=== PATIENT | female | born 1985 | race Caucasian/White ===

== ENCOUNTER 2020-05-23 15:41 | Inpatient (IN) | payer BC, OTHER ==
[~2020-05-23] VITALS: Ht 172.7 cm; Wt 56.2 kg
[2020-05-23] MEDS: LACTATED RINGER'S 1,000 ML INJ SCH
[2020-05-23 16:53] LABS: BASOPHILS % 0.1 % (0.0-1.0); EOSINOPHILS # (AUTO) 0.1 (0.0-0.4); EOSINOPHILS % 1.5 % (0.0-6.0); HEMATOCRIT 34.7 % (34.2-44.1); LYMPHOCYTES # (AUTO) 0.5 (1.0-3.2); LYMPHOCYTES % 5.7 % (18.0-39.1); MEAN CORPUSCULAR HEMOGLOBIN 31.2 pg (28-32); MEAN CORPUSCULAR HGB CONC 34.6 g/dL (31-35); MEAN CORPUSCULAR VOLUME 90.1 fL (81-99); MONOCYTES # (AUTO) 0.2 (0.2-0.8); MONOCYTES % 2.5 % (4.4-11.3); NEUTROPHILS # (AUTO) 7.1 (2.1-6.9); NEUTROPHILS % 89.8 % (38.7-80.0); PLATELET COUNT 226 x10e3/uL (140-360); RED BLOOD COUNT 3.85 x10e6/uL (3.6-5.1); RED CELL DISTRIBUTION WIDTH 13.3 % (11.7-14.4)
[2020-05-23 17:10] LABS: ALBUMIN 3.3 g/dL (3.5-5.0); ALBUMIN/GLOBULIN RATIO 1.2 (0.8-2.0); ANION GAP 22.5 mmol/L (8-16); CREATININE, SERUM 7.07 mg/dL (0.57-1.11); LIPASE 30 U/L (8-78); POTASSIUM 5.5 mmol/L (3.5-5.1)
[2020-05-23 17:13] LABS: CALCIUM 6.6 mg/dL (8.4-10.2)
[2020-05-23] MEDS ORDERED: SODIUM CHLORIDE 0.9% 1000ML 1,000 ML ONE (17:29)
[2020-05-23] MEDS ORDERED: SODIUM CHLORIDE 0.9% 1000ML 1,000 ML IV SCH ×2 (17:30→19:15)
[2020-05-23] MEDS ORDERED: CALCIUM GLUCONATE 10% INJ 4.65 MEQ in SODIUM CHLORIDE 0.9% 50ML 50 ML IV ONE (17:30)
[2020-05-23] MEDS ORDERED: SODIUM CHLORIDE 0.9% IV SCH (19:15)
[2020-05-23] MEDS ORDERED: DEXTROSE 10% IV SCH (19:15)
[2020-05-23 19:23] LABS: MAGNESIUM 1.5 MG/DL (1.3-2.1); PHOSPHORUS 7.6 MG/DL (2.3-4.7)
[2020-05-23 19:27] LABS: CLARITY,URINE TURBID (CLEAR); COLOR,URINE BROWN (YELLOW); LEUKOCYTE ESTERASE ,URINE LARGE (NEGATIVE); NITRITE,URINE NEGATIVE (NEGATIVE); PROTEIN,URINE DIPSTICK 2+ (NEGATIVE)
[2020-05-23 19:28] LABS: KETONES,URINE NEGATIVE (NEGATIVE); URINE UROBILINOGEN 0.2 mg/dL (0.2 - 1)
[2020-05-23 19:41] LABS: WBC,URINE (MAN) >50 /HPF (0-5)
[2020-05-23 19:42] LABS: BACTERIA,URINE MODERATE /HPF
[2020-05-23] MEDS ORDERED: [UNRECOGNIZED DRUG - OTHER] IV SCH (20:15)
[2020-05-23] MEDS ORDERED: SODIUM CHLORIDE IV SCH (20:15)
[2020-05-23] MEDS ORDERED: DEXTROSE 50% IV SCH (20:15)
[2020-05-23] MEDS ORDERED: ONDANSETRON HCL INJ 2MG/ML 2ML 2 MG/ML VIAL IV PRN (20:15)
[2020-05-23 21:28] LABS: INR 4.53
[2020-05-23 21:31] LABS: PROTHROMBIN TIME 47.1 seconds (11.9-14.5)
[2020-05-23 21:37] VITALS: BP 105/56
[2020-05-23 22:00] VITALS: BP_SYST 105; BP_SYST 106; BP_DIAS 56; BP_DIAS 63
[2020-05-23 22:09] VITALS: BP 103/63
[2020-05-23] MEDS: SODIUM CHLORIDE 0.9% 1000ML 1,000 ML IV SCH (22:12)
[2020-05-23 23:00] VITALS: BP 107/54
[2020-05-23 23:40] LABS: AMPHETAMINES SCREEN,URINE NEGATIVE (NEGATIVE); BENZODIAZEPINES SCREEN,URINE NEGATIVE (NEGATIVE); PHENCYCLIDINE SCREEN,URINE NEGATIVE (NEGATIVE)
[2020-05-24] VITALS (20 sets, daily range): BP systolic 105–140; BP diastolic 63–92
[2020-05-24] MEDS ORDERED: PHYTONADIONE 10 MG/ML AMP IV ONE (00:30)
[2020-05-24] MEDS ORDERED: SODIUM CHLORIDE 0.9% 100 ML ONE (00:53)
[2020-05-24] MEDS ORDERED: RIFAXIMIN 550 MG TABLET ONE ×2 (02:25→03:54)
[2020-05-24] MEDS ORDERED: LACTULOSE SYRUP 20 GM/30 ML UDC ONE (02:25)
[2020-05-24] MEDS: SODIUM CHLORIDE 0.9% 1000ML 1,000 ML IV SCH (02:55)
[2020-05-24] MEDS ORDERED: ACETYLCYSTEINE 200 MG/1 ML IV ONE (03:49)
[2020-05-24] MEDS ORDERED: SODIUM CHLORIDE 0.9% 250ML 250 ML ONE (03:57)
[2020-05-24] MEDS ORDERED: SODIUM CHLORIDE 0.45% 1,000 ML ONE (03:57)
[2020-05-24] MEDS: LACTATED RINGER'S 1,000 ML INJ SCH ×3 (05:00→19:22)
[2020-05-24 06:46] LABS: BASOPHILS % 0.2 % (0.0-1.0); EOSINOPHILS # (AUTO) 0.3 (0.0-0.4); EOSINOPHILS % 5.2 % (0.0-6.0); HEMOGLOBIN 11.7 g/dL (12.0-16.0); LYMPHOCYTES # (AUTO) 0.5 (1.0-3.2); LYMPHOCYTES % 9.4 % (18.0-39.1); MEAN CORPUSCULAR HEMOGLOBIN 31.3 pg (28-32); MEAN CORPUSCULAR HGB CONC 34.4 g/dL (31-35); MEAN CORPUSCULAR VOLUME 90.9 fL (81-99); MONOCYTES # (AUTO) 0.2 (0.2-0.8); NEUTROPHILS # (AUTO) 4.1 (2.1-6.9); NEUTROPHILS % 81.8 % (38.7-80.0); PLATELET COUNT 188 x10e3/uL (140-360); RED BLOOD COUNT 3.74 x10e6/uL (3.6-5.1); RED CELL DISTRIBUTION WIDTH 13.2 % (11.7-14.4)
[2020-05-24 07:47] LABS: ALBUMIN 2.7 g/dL (3.5-5.0); ALBUMIN/GLOBULIN RATIO 1.1 (0.8-2.0); ANION GAP 20.6 mmol/L (8-16); CREATININE, SERUM 5.86 mg/dL (0.57-1.11); POTASSIUM 4.6 mmol/L (3.5-5.1)
[2020-05-24 07:52] LABS: CALCIUM 6.1 mg/dL (8.4-10.2)
[2020-05-24 08:58] LABS: MAGNESIUM 1.5 MG/DL (1.3-2.1); PHOSPHORUS 5.6 MG/DL (2.3-4.7)
[2020-05-24 09:00] LABS: CALCIUM IONIZED 0.8 mmol/L (1.09-1.30)
[2020-05-24] MEDS: PROMETHAZINE 25MG/ NS 50ML (IV) IV PRN ×2 (09:01→23:00)
[2020-05-24] MEDS: RIFAXIMIN 550 MG TABLET PO SCH ×2 (09:23→21:33)
[2020-05-24] MEDS: LACTULOSE SYRUP 20 GM/30 ML UDC PO PRN ×2 (09:23→17:29)
[2020-05-24] MEDS ORDERED: CALCIUM GLUCONATE 10% INJ 4.65 MEQ in SODIUM CHLORIDE 0.9% 50ML 50 ML IV ONE (10:10)
[2020-05-24] MEDS ORDERED: ALBUMIN 25% 25GM 100ML 0.25 GM/ML BTL IV SCH (10:15)
[2020-05-24] MEDS ORDERED: ACETYLCYSTEINE IV ONE (12:00)
[2020-05-24] MEDS ORDERED: SODIUM CHLORIDE 0.45% IV ONE (12:00)
[2020-05-24] MEDS: MIDODRINE HCL 5 MG TABLET PO SCH ×2 (12:04→17:29)
[2020-05-24] MEDS: OCTREOTIDE ACETATE 0.1 MG/ML 100MCG AMP SQ SCH ×2 (12:04→17:29)
[2020-05-24] MEDS: CEFEPIME HCL 1GM 1 GM in SODIUM CHLORIDE 0.9% 50ML 50 ML IV SCH (12:19)
[2020-05-24] MEDS: ALBUMIN 25% 25GM 100ML 100 ML IV SCH ×2 (12:21→17:29)
[2020-05-24] MEDS ORDERED: PHYTONADIONE 10MG/ML 20 MG in SODIUM CHLORIDE 0.9% 50ML 50 ML IV ONE (13:00)
[2020-05-25] VITALS (23 sets, daily range): BP systolic 118–146; BP diastolic 83–97
[2020-05-25] MEDS: LACTATED RINGER'S 1,000 ML INJ SCH ×4 (02:24→15:50)
[2020-05-25] MEDS ORDERED: SODIUM CHLORIDE 0.45% IV ONE (04:30)
[2020-05-25] MEDS ORDERED: ACETYLCYSTEINE IV ONE (04:30)
[2020-05-25 05:04] LABS: INR 3.14
[2020-05-25 05:13] LABS: ALBUMIN 2.9 g/dL (3.5-5.0); ALBUMIN/GLOBULIN RATIO 1.4 (0.8-2.0); ANION GAP 15.4 mmol/L (8-16); CALCIUM 7.4 mg/dL (8.4-10.2); CREATININE, SERUM 4.29 mg/dL (0.57-1.11); POTASSIUM 3.4 mmol/L (3.5-5.1)
[2020-05-25] MEDS: MIDODRINE HCL 5 MG TABLET PO SCH ×2 (09:00→17:00)
[2020-05-25] MEDS: ALBUMIN 25% 25GM 100ML 100 ML IV SCH ×2 (09:10→18:01)
[2020-05-25] MEDS: RIFAXIMIN 550 MG TABLET PO SCH ×2 (09:11→21:04)
[2020-05-25] MEDS: OCTREOTIDE ACETATE 0.1 MG/ML 100MCG AMP SQ SCH ×2 (09:16→17:59)
[2020-05-25] MEDS: CEFEPIME HCL 1GM 1 GM in SODIUM CHLORIDE 0.9% 50ML 50 ML IV SCH (09:22)
[2020-05-25] MEDS: PROMETHAZINE 25MG/ NS 50ML (IV) IV PRN (09:43)
[2020-05-25 10:09] LABS: CREATININE,URINE RANDOM 83.51 mg/dL (47-110)
[2020-05-25] MEDS ORDERED: CLONAZEPAM1 MG PO (14:19)
[2020-05-25] MEDS ORDERED: TYLENOL EXTRA500 MG PO (14:19)
[2020-05-25] MEDS ORDERED: TRAZODONE HCL50 MG PO (14:19)
[2020-05-25] MEDS: LACTULOSE SYRUP 20 GM/30 ML UDC PO PRN (14:26)
[2020-05-25] MEDS ORDERED: SODIUM CHLORIDE 0.45% 1,000 ML IV SCH (16:45)
[2020-05-25] MEDS ORDERED: POTASSIUM CHLORIDE 10MEQ EA PO ONE (17:00)
[2020-05-25] MEDS: CLONAZEPAM 0.5 MG TAB PO SCH (18:02)
[2020-05-25] MEDS: HYDROMORPHONE 1MG/1ML INJ IV ONE ×2 (18:03→19:48)
[2020-05-25 19:09] LABS: OSMOLALITY,SERUM OSMOMETER 291 mOsmol/kg (275-295)
[2020-05-25] MEDS: ACETYLCYSTEINE IV SCH (21:04)
[2020-05-25] MEDS: SODIUM CHLORIDE 0.45% IV SCH (21:04)
[2020-05-25] MEDS ORDERED: PHYTONADIONE 10 MG/ML AMP IV ONE (23:15)
[2020-05-25] MEDS ORDERED: LACTULOSE SYRUP 20 GM/30 ML UDC PO STA (23:22)
[2020-05-25] MEDS ORDERED: PHYTONADIONE 10MG/ML 20 MG in SODIUM CHLORIDE 0.9% 50ML 50 ML IV ONE (23:30)
[2020-05-26 04:00] VITALS: BP 129/88
[2020-05-26] MEDS: LACTATED RINGER'S 1,000 ML INJ SCH ×4 (04:58→22:15)
[2020-05-26] MEDS: CLONAZEPAM 0.5 MG TAB PO SCH ×2 (05:04→17:53)
[2020-05-26 06:08] LABS: BASOPHILS # (AUTO) 0.1 (0.0-0.1); BASOPHILS % 0.7 % (0.0-1.0); EOSINOPHILS # (AUTO) 0.6 (0.0-0.4); EOSINOPHILS % 9.1 % (0.0-6.0); HEMATOCRIT 33.2 % (34.2-44.1); HEMOGLOBIN 11.2 g/dL (12.0-16.0); LYMPHOCYTES # (AUTO) 1.3 (1.0-3.2); LYMPHOCYTES % 19.2 % (18.0-39.1); MEAN CORPUSCULAR HEMOGLOBIN 31.5 pg (28-32); MEAN CORPUSCULAR HGB CONC 33.7 g/dL (31-35); MEAN CORPUSCULAR VOLUME 93.3 fL (81-99); MONOCYTES # (AUTO) 0.6 (0.2-0.8); NEUTROPHILS # (AUTO) 4.3 (2.1-6.9); NEUTROPHILS % 62.6 % (38.7-80.0); PLATELET COUNT 142 x10e3/uL (140-360); RED BLOOD COUNT 3.56 x10e6/uL (3.6-5.1); RED CELL DISTRIBUTION WIDTH 13.5 % (11.7-14.4)
[2020-05-26 06:10] LABS: ALBUMIN 3.2 g/dL (3.5-5.0); ALBUMIN/GLOBULIN RATIO 1.4 (0.8-2.0); ANION GAP 12.6 mmol/L (8-16); CALCIUM 7.6 mg/dL (8.4-10.2); CREATININE, SERUM 2.31 mg/dL (0.57-1.11); POTASSIUM 3.6 mmol/L (3.5-5.1)
[2020-05-26 07:33] LABS: INR 2.41; PROTHROMBIN TIME 28.2 seconds (11.9-14.5)
[2020-05-26 07:33] LABS: % IRON SATURATION 96 % (15-50); IRON 131 ug/dL (50-170); TOTAL IRON BINDING CAPACITY 136 ug/dL (261-478); TRANSFERRIN 97 mg/dL (180-382)
[2020-05-26] MEDS ORDERED: CEFEPIME HCL 1 GM VIAL ONE (08:03)
[2020-05-26] MEDS ORDERED: SODIUM CHLORIDE 0.9% 50ML 50 ML ONE (08:03)
[2020-05-26 08:19] VITALS: BP 128/93
[2020-05-26 08:38] VITALS: BP 128/93
[2020-05-26] MEDS: ALBUMIN 25% 25GM 100ML 100 ML IV SCH ×2 (08:40→17:52)
[2020-05-26] MEDS: LACTULOSE SYRUP 20 GM/30 ML UDC PO SCH ×2 (08:41→17:52)
[2020-05-26] MEDS: MIDODRINE HCL 5 MG TABLET PO SCH ×2 (08:41→17:52)
[2020-05-26] MEDS: RIFAXIMIN 550 MG TABLET PO SCH ×2 (08:41→21:04)
[2020-05-26] MEDS: OCTREOTIDE ACETATE 0.1 MG/ML 100MCG AMP SQ SCH ×2 (09:05→17:52)
[2020-05-26] MEDS: CEFEPIME HCL 1GM 1 GM in SODIUM CHLORIDE 0.9% 50ML 50 ML IV SCH (10:45)
[2020-05-26 11:32] VITALS: BP 125/93
[2020-05-26] MEDS: ACETYLCYSTEINE IV SCH ×2 (12:15→19:50)
[2020-05-26] MEDS: SODIUM CHLORIDE 0.45% IV SCH ×2 (12:15→19:50)
[2020-05-26 15:45] VITALS: BP 130/94
[2020-05-26 20:00] VITALS: BP 144/97
[2020-05-26] MEDS ORDERED: MORPHINE SULFATE INJ 2 MG/ML SYR IV ONE (21:30)
[2020-05-27] VITALS (8 sets, daily range): BP systolic 134–154; BP diastolic 88–98
[2020-05-27] MEDS: ZOLPIDEM TARTRATE 5 MG TAB PO PRN ×2 (01:10→23:06)
[2020-05-27] MEDS: MORPHINE SULFATE INJ 4 MG/ML INJ 1ML IV PRN ×3 (04:45→16:32)
[2020-05-27] MEDS: LACTATED RINGER'S 1,000 ML INJ SCH (04:50)
[2020-05-27 05:48] LABS: BASOPHILS % 0.4 % (0.0-1.0); EOSINOPHILS % 10.5 % (0.0-6.0); HEMATOCRIT 27.4 % (34.2-44.1); HEMOGLOBIN 9.5 g/dL (12.0-16.0); LYMPHOCYTES # (AUTO) 1.4 (1.0-3.2); LYMPHOCYTES % 15.4 % (18.0-39.1); MEAN CORPUSCULAR HEMOGLOBIN 32.2 pg (28-32); MEAN CORPUSCULAR HGB CONC 34.7 g/dL (31-35); MEAN CORPUSCULAR VOLUME 92.9 fL (81-99); MONOCYTES # (AUTO) 0.7 (0.2-0.8); MONOCYTES % 7.9 % (4.4-11.3); NEUTROPHILS # (AUTO) 5.9 (2.1-6.9); NEUTROPHILS % 65.1 % (38.7-80.0); PLATELET COUNT 153 x10e3/uL (140-360); RED BLOOD COUNT 2.95 x10e6/uL (3.6-5.1); RED CELL DISTRIBUTION WIDTH 13.8 % (11.7-14.4)
[2020-05-27 06:06] LABS: INR 2.13; PROTHROMBIN TIME 25.5 seconds (11.9-14.5)
[2020-05-27 06:14] LABS: ALBUMIN/GLOBULIN RATIO 1.6 (0.8-2.0); ANION GAP 12.6 mmol/L (8-16); CALCIUM 7.5 mg/dL (8.4-10.2); CREATININE, SERUM 1.35 mg/dL (0.57-1.11); POTASSIUM 3.6 mmol/L (3.5-5.1)
[2020-05-27] MEDS: CLONAZEPAM 0.5 MG TAB PO SCH ×2 (06:26→16:32)
[2020-05-27 08:38] LABS: EOSINOPHILS % (MANUAL) 8 % (0-7); LYMPHOCYTES % (MANUAL) 10 % (19-48); MONOCYTES % (MANUAL) 9 % (3.4-9.0); NEUTROPHILS % (MANUAL) 73 % (40-74)
[2020-05-27] MEDS: MIDODRINE HCL 5 MG TABLET PO SCH ×2 (09:00→15:41)
[2020-05-27] MEDS ORDERED: CEFEPIME HCL 1 GM VIAL ONE (09:13)
[2020-05-27] MEDS: OCTREOTIDE ACETATE 0.1 MG/ML 100MCG AMP SQ SCH ×2 (09:22→16:32)
[2020-05-27] MEDS: RIFAXIMIN 550 MG TABLET PO SCH ×2 (09:22→20:46)
[2020-05-27] MEDS: CEFEPIME HCL 1GM 1 GM in SODIUM CHLORIDE 0.9% 50ML 50 ML IV SCH (09:22)
[2020-05-27] MEDS: LACTULOSE SYRUP 20 GM/30 ML UDC PO SCH ×2 (09:22→16:32)
[2020-05-27] MEDS ORDERED: CEFTRIAXONE SOD 1 GM/50 ML BAG IV SCH (09:45)
[2020-05-27] MEDS ORDERED: ONDANSETRON HCL 4 MG ORAL DISINTEGRATING TAB PO PRN (10:30)
[2020-05-27] MEDS: SODIUM CHLORIDE 0.45% IV SCH (11:37)
[2020-05-27] MEDS: ACETYLCYSTEINE IV SCH (11:37)
[2020-05-27] MEDS: CEFTRIAXONE SOD 1 GM in SODIUM CHLORIDE 0.9% 50ML 50 ML IV SCH (13:54)
[2020-05-27 19:56] LABS: DURATION, URINE COLLECTION 24 hrs
[2020-05-27 20:20] LABS: TOTAL VOLUME, URINE 5500 ml/24hr (800-2000)
[2020-05-27 20:46] LABS: CREATININE 24 HOUR,URINE 1096 mg/24hr (600-1800); CREATININE,URINE RANDOM 19.93 mg/dL (47-110)
[2020-05-27 20:49] LABS: TOTAL PROTEIN 24HR, URINE 373.99945 mg/24hr (50-100); TOTAL PROTEIN, URINE < 6.8 mg/dL (1-14)
[2020-05-27 20:59] LABS: EOSINOPHIL SMEAR,URINE NONE SEEN (NONE SEEN)
[2020-05-27] MEDS: MORPHINE SULFATE INJ 2 MG/ML SYR IV PRN (23:06)
[2020-05-28] VITALS (7 sets, daily range): BP systolic 130–151; BP diastolic 78–97
[2020-05-28] MEDS ORDERED: PHYTONADIONE 10 MG/ML AMP IV ONE (01:00)
[2020-05-28] MEDS ORDERED: PHYTONADIONE 10MG/ML 20 MG in SODIUM CHLORIDE 0.9% 50ML 50 ML IV ONE (01:15)
[2020-05-28] MEDS: MORPHINE SULFATE INJ 2 MG/ML SYR IV PRN ×2 (05:06→10:56)
[2020-05-28 05:36] LABS: BASOPHILS # (AUTO) 0.1 (0.0-0.1); BASOPHILS % 0.4 % (0.0-1.0); EOSINOPHILS # (AUTO) 0.5 (0.0-0.4); HEMATOCRIT 30.9 % (34.2-44.1); HEMOGLOBIN 10.5 g/dL (12.0-16.0); LYMPHOCYTES # (AUTO) 1.1 (1.0-3.2); LYMPHOCYTES % 6.7 % (18.0-39.1); MEAN CORPUSCULAR HEMOGLOBIN 31.7 pg (28-32); MEAN CORPUSCULAR VOLUME 93.4 fL (81-99); MONOCYTES # (AUTO) 1.6 (0.2-0.8); MONOCYTES % 9.4 % (4.4-11.3); NEUTROPHILS # (AUTO) 13.4 (2.1-6.9); NEUTROPHILS % 79.8 % (38.7-80.0); PLATELET COUNT 143 x10e3/uL (140-360); RED BLOOD COUNT 3.31 x10e6/uL (3.6-5.1)
[2020-05-28] MEDS: CLONAZEPAM 0.5 MG TAB PO SCH ×2 (05:45→18:06)
[2020-05-28 06:05] LABS: ALANINE AMINOTRANSFERASE 744 IU/L (0-55); ALBUMIN 3.1 g/dL (3.5-5.0); ALBUMIN/GLOBULIN RATIO 1.3 (0.8-2.0); ALKALINE PHOSPHATASE 132 IU/L (40-150); ANION GAP 10.5 mmol/L (8-16); BLOOD UREA NITROGEN 19 mg/dL (7-26); BUN/CREATININE RATIO 19 (6-25); CALCIUM 7.7 mg/dL (8.4-10.2); CARBON DIOXIDE 24 mmol/L (22-29); CHLORIDE 101 mmol/L (98-107); CREATININE, SERUM 1.02 mg/dL (0.57-1.11); EST GLOMERULAR FILTRATION RATE > 60 ML/MIN (60-); GLUCOSE 105 mg/dL (74-118); POTASSIUM 3.5 mmol/L (3.5-5.1); SODIUM 132 mmol/L (136-145)
[2020-05-28] MEDS: LACTULOSE SYRUP 20 GM/30 ML UDC PO SCH ×2 (08:51→18:06)
[2020-05-28] MEDS: RIFAXIMIN 550 MG TABLET PO SCH ×2 (08:52→20:50)
[2020-05-28] MEDS: OCTREOTIDE ACETATE 0.1 MG/ML 100MCG AMP SQ SCH (08:52)
[2020-05-28] MEDS: MIDODRINE HCL 5 MG TABLET PO SCH (09:00)
[2020-05-28] MEDS ORDERED: LACTULOSE SYRUP 20 GM/30 ML UDC PO PRN (12:00)
[2020-05-28] MEDS: ACETYLCYSTEINE IV SCH (12:00)
[2020-05-28] MEDS ORDERED: KETOROLAC TROMETHAMINE 30 MG/ML VIAL IV NR ×2 (12:00→13:15)
[2020-05-28] MEDS: SODIUM CHLORIDE 0.45% IV SCH (12:00)
[2020-05-28] MEDS ORDERED: POTASSIUM CHLORIDE 20 MEQ TAB CR PO NR (14:15)
[2020-05-28] MEDS: CEFTRIAXONE SOD 1 GM in SODIUM CHLORIDE 0.9% 50ML 50 ML IV SCH (14:55)
[2020-05-28 15:14] LABS: FERRITIN 441.85 ng/mL (4.63-204.00)
[2020-05-28] MEDS: METHOCARBAMOL 500 MG TAB PO SCH ×2 (15:27→20:50)
[2020-05-28] MEDS: ZOLPIDEM TARTRATE 5 MG TAB PO PRN (20:50)
[2020-05-29] VITALS (8 sets, daily range): BP systolic 129–144; BP diastolic 74–95
[2020-05-29 03:45] LABS: CLARITY,URINE CLEAR (CLEAR); COLOR,URINE AMBER (YELLOW)
[2020-05-29 03:46] LABS: KETONES,URINE NEGATIVE (NEGATIVE); LEUKOCYTE ESTERASE ,URINE NEGATIVE (NEGATIVE); NITRITE,URINE NEGATIVE (NEGATIVE); PROTEIN,URINE DIPSTICK NEGATIVE (NEGATIVE); URINE UROBILINOGEN 1 mg/dL (0.2 - 1)
[2020-05-29 03:47] LABS: BACTERIA,URINE FEW /HPF; EPITHELIAL CELLS,URINE MANY /LPF; RENAL EPITHELIAL CELLS,URINE FEW
[2020-05-29] MEDS: SODIUM CHLORIDE 0.45% IV SCH ×2 (04:00→17:18)
[2020-05-29] MEDS: ACETYLCYSTEINE IV SCH ×2 (04:00→17:18)
[2020-05-29] MEDS: CLONAZEPAM 0.5 MG TAB PO SCH ×2 (05:11→16:18)
[2020-05-29] MEDS: MORPHINE SULFATE INJ 2 MG/ML SYR IV PRN ×2 (06:52→12:54)
[2020-05-29 08:00] LABS: BASOPHILS # (AUTO) 0.1 (0.0-0.1); BASOPHILS % 0.4 % (0.0-1.0); EOSINOPHILS # (AUTO) 0.4 (0.0-0.4); EOSINOPHILS % 3.1 % (0.0-6.0); HEMATOCRIT 29.7 % (34.2-44.1); HEMOGLOBIN 10.3 g/dL (12.0-16.0); LYMPHOCYTES # (AUTO) 1.3 (1.0-3.2); LYMPHOCYTES % 9.8 % (18.0-39.1); MEAN CORPUSCULAR HEMOGLOBIN 32.4 pg (28-32); MEAN CORPUSCULAR HGB CONC 34.7 g/dL (31-35); MEAN CORPUSCULAR VOLUME 93.4 fL (81-99); MONOCYTES # (AUTO) 1.4 (0.2-0.8); MONOCYTES % 10.2 % (4.4-11.3); NEUTROPHILS # (AUTO) 10.1 (2.1-6.9); NEUTROPHILS % 75.9 % (38.7-80.0); PLATELET COUNT 124 x10e3/uL (140-360); RED BLOOD COUNT 3.18 x10e6/uL (3.6-5.1); RED CELL DISTRIBUTION WIDTH 14.9 % (11.7-14.4)
[2020-05-29 08:10] LABS: INR 1.83; PROTHROMBIN TIME 22.6 seconds (11.9-14.5)
[2020-05-29 08:20] LABS: ALANINE AMINOTRANSFERASE 560 IU/L (0-55); ALBUMIN 2.9 g/dL (3.5-5.0); ALBUMIN/GLOBULIN RATIO 1.2 (0.8-2.0); ALKALINE PHOSPHATASE 112 IU/L (40-150); ANION GAP 10.5 mmol/L (8-16); BLOOD UREA NITROGEN 16 mg/dL (7-26); BUN/CREATININE RATIO 16 (6-25); CALCIUM 7.4 mg/dL (8.4-10.2); CARBON DIOXIDE 25 mmol/L (22-29); CHLORIDE 103 mmol/L (98-107); CREATININE, SERUM 0.99 mg/dL (0.57-1.11); EST GLOMERULAR FILTRATION RATE > 60 ML/MIN (60-); GLUCOSE 92 mg/dL (74-118); POTASSIUM 3.5 mmol/L (3.5-5.1); SODIUM 135 mmol/L (136-145)
[2020-05-29] MEDS: LACTULOSE SYRUP 20 GM/30 ML UDC PO SCH ×2 (08:20→16:18)
[2020-05-29] MEDS: METHOCARBAMOL 500 MG TAB PO SCH ×3 (08:20→20:22)
[2020-05-29] MEDS: RIFAXIMIN 550 MG TABLET PO SCH ×2 (08:21→20:22)
[2020-05-29] MEDS: IRON SUCROSE 100 MG in SODIUM CHLORIDE 0.9% 100 ML 100 ML IV SCH (10:19)
[2020-05-29] MEDS: TRAMADOL HCL 50 MG TAB PO PRN ×2 (11:24→22:02)
[2020-05-29] MEDS ORDERED: ETOMIDATE 2 MG/ML 10 ML INJ IV ONE (13:56)
[2020-05-29] MEDS ORDERED: WATER STERILE 10 ML VIAL ONE (13:56)
[2020-05-29] MEDS ORDERED: SUCCINYLCHOLINE CHLORIDE 20 MG/ML 10ML VIAL ONE (13:56)
[2020-05-29] MEDS ORDERED: MIDAZOLAM HCL 2 MG/2 ML VIAL ONE (13:56)
[2020-05-29] MEDS: CEFTRIAXONE SOD 1 GM in SODIUM CHLORIDE 0.9% 50ML 50 ML IV SCH (16:18)
[2020-05-29] MEDS: ZOLPIDEM TARTRATE 5 MG TAB PO PRN (20:22)
[2020-05-29] MEDS ORDERED: KETOROLAC TROMETHAMINE 30 MG/ML VIAL IV STA (22:12)
[2020-05-30] VITALS (15 sets, daily range): BP systolic 82–126; BP diastolic 45–82
[2020-05-30 05:18] LABS: BASOPHILS % 0.4 % (0.0-1.0); EOSINOPHILS # (AUTO) 0.3 (0.0-0.4); EOSINOPHILS % 3.5 % (0.0-6.0); HEMATOCRIT 28.1 % (34.2-44.1); HEMOGLOBIN 9.4 g/dL (12.0-16.0); LYMPHOCYTES # (AUTO) 1.4 (1.0-3.2); LYMPHOCYTES % 14.4 % (18.0-39.1); MEAN CORPUSCULAR HEMOGLOBIN 32.2 pg (28-32); MEAN CORPUSCULAR HGB CONC 33.5 g/dL (31-35); MEAN CORPUSCULAR VOLUME 96.2 fL (81-99); MONOCYTES # (AUTO) 1.2 (0.2-0.8); MONOCYTES % 12.2 % (4.4-11.3); NEUTROPHILS # (AUTO) 6.6 (2.1-6.9); NEUTROPHILS % 68.9 % (38.7-80.0); PLATELET COUNT 88 x10e3/uL (140-360); RED BLOOD COUNT 2.92 x10e6/uL (3.6-5.1); RED CELL DISTRIBUTION WIDTH 15.8 % (11.7-14.4)
[2020-05-30 05:40] LABS: ALANINE AMINOTRANSFERASE 450 IU/L (0-55); ALBUMIN 2.7 g/dL (3.5-5.0); ALKALINE PHOSPHATASE 129 IU/L (40-150); ANION GAP 12.4 mmol/L (8-16); BLOOD UREA NITROGEN 13 mg/dL (7-26); BUN/CREATININE RATIO 15 (6-25); CALCIUM 7.3 mg/dL (8.4-10.2); CARBON DIOXIDE 24 mmol/L (22-29); CHLORIDE 102 mmol/L (98-107); CREATININE, SERUM 0.84 mg/dL (0.57-1.11); EST GLOMERULAR FILTRATION RATE > 60 ML/MIN (60-); GLUCOSE 82 mg/dL (74-118); POTASSIUM 3.4 mmol/L (3.5-5.1); SODIUM 135 mmol/L (136-145)
[2020-05-30] MEDS: CLONAZEPAM 0.5 MG TAB PO SCH (06:06)
[2020-05-30] MEDS: RIFAXIMIN 550 MG TABLET PO SCH ×2 (09:00→23:01)
[2020-05-30] MEDS: METHOCARBAMOL 500 MG TAB PO SCH (09:00)
[2020-05-30] MEDS: IRON SUCROSE 100 MG in SODIUM CHLORIDE 0.9% 100 ML 100 ML IV SCH (09:00)
[2020-05-30] MEDS: LACTULOSE SYRUP 20 GM/30 ML UDC PO SCH ×2 (09:00→17:00)
[2020-05-30] MEDS ORDERED: POTASSIUM CHLORIDE 20 MEQ TAB CR PO ONE (10:30)
[2020-05-30] MEDS: MORPHINE SULFATE INJ 2 MG/ML SYR IV PRN (10:37)
[2020-05-30] MEDS ORDERED: OYST-CAL-D 500MG TABLET PO ONE (10:45)
[2020-05-30] MEDS: ACETYLCYSTEINE IV SCH (11:07)
[2020-05-30] MEDS: SODIUM CHLORIDE 0.45% IV SCH (11:07)
[2020-05-30 11:39] LABS: PLATELET ESTIMATE MODERATELY DECREASED; PLATELET MORPHOLOGY COMMENT NORMAL
[2020-05-30 12:30] LABS: BASOPHILS # (AUTO) 0.1 (0.0-0.1); BASOPHILS % 0.3 % (0.0-1.0); EOSINOPHILS # (AUTO) 0.4 (0.0-0.4); EOSINOPHILS % 2.4 % (0.0-6.0); LYMPHOCYTES # (AUTO) 1.6 (1.0-3.2); LYMPHOCYTES % 9.3 % (18.0-39.1); MEAN CORPUSCULAR HEMOGLOBIN 32.3 pg (28-32); MEAN CORPUSCULAR HGB CONC 33.9 g/dL (31-35); MEAN CORPUSCULAR VOLUME 95.5 fL (81-99); MONOCYTES # (AUTO) 1.7 (0.2-0.8); MONOCYTES % 10.1 % (4.4-11.3); NEUTROPHILS # (AUTO) 13.2 (2.1-6.9); NEUTROPHILS % 76.5 % (38.7-80.0); PLATELET COUNT 204 x10e3/uL (140-360); RED BLOOD COUNT 2.01 x10e6/uL (3.6-5.1); RED CELL DISTRIBUTION WIDTH 16.1 % (11.7-14.4)
[2020-05-30 12:40] LABS: HEMOGLOBIN 6.5 g/dL (12.0-16.0)
[2020-05-30 12:41] LABS: HEMATOCRIT 19.2 % (34.2-44.1)
[2020-05-30 13:47] LABS: MEAN CORPUSCULAR HEMOGLOBIN 31.9 pg (28-32); MEAN CORPUSCULAR VOLUME 96.8 fL (81-99); PLATELET COUNT 273 x10e3/uL (140-360); RED BLOOD COUNT 1.85 x10e6/uL (3.6-5.1); RED CELL DISTRIBUTION WIDTH 16.3 % (11.7-14.4)
[2020-05-30 13:52] LABS: HEMATOCRIT 17.9 % (34.2-44.1); HEMOGLOBIN 5.9 g/dL (12.0-16.0)
[2020-05-30 13:56] LABS: INR 1.92; PROTHROMBIN TIME 23.5 seconds (11.9-14.5)
[2020-05-30] MEDS ORDERED: SODIUM CHLORIDE 0.9% 250ML 250 ML IV ONE ×4 (14:00→23:45)
[2020-05-30] MEDS: CEFTRIAXONE SOD 1 GM in SODIUM CHLORIDE 0.9% 50ML 50 ML IV SCH (14:00)
[2020-05-30] MEDS ORDERED: LACTATED RINGER'S 1,000 ML INJ ONE (15:30)
[2020-05-30] MEDS ORDERED: IOPAMIDOL 370 MG/ML 200 ML INFUS..BTL INJ ONE (15:31)
[2020-05-30] MEDS ORDERED: SODIUM CHLORIDE 0.9% 100 ML ONE (15:31)
[2020-05-30] MEDS ORDERED: LIDOCAINE HCL 2% LOCAL 20 ML VIAL ONE (16:14)
[2020-05-30] MEDS ORDERED: PROPOFOL IV EMULSION 10MG/ML 100 ML ONE (16:22)
[2020-05-30] MEDS ORDERED: ONDANSETRON HCL INJ 2MG/ML 2ML 2 MG/ML VIAL IV PRN (17:15)
[2020-05-30] MEDS ORDERED: POTASSIUM CHLORIDE 20MEQ/100ML 100 ML IV ONE (17:15)
[2020-05-30] MEDS ORDERED: FENTANYL 2000MCG/NS 250 250 ML IV SCH (17:15)
[2020-05-30] MEDS ORDERED: SODIUM CHLORIDE 0.9% 250ML 250 ML ONE (17:25)
[2020-05-30 17:42] LABS: ABG PCO2 37 mmHg (35-45); ABG PH 7.41 (7.35-7.45); ABG PO2 449 mmHg (80-105)
[2020-05-30 17:43] LABS: ABG HCO3 23 mmol/L (22-26); ABG TCO2 24
[2020-05-30] MEDS ORDERED: CALCIUM CHLORIDE 13.6 MEQ in SODIUM CHLORIDE 0.9% 100 ML 100 ML IV ONE (17:45)
[2020-05-30 20:23] LABS: BASOPHILS # (AUTO) 0.1 (0.0-0.1); BASOPHILS % 0.3 % (0.0-1.0); EOSINOPHILS % 0.1 % (0.0-6.0); HEMOGLOBIN 7.6 g/dL (12.0-16.0); LYMPHOCYTES # (AUTO) 2.7 (1.0-3.2); LYMPHOCYTES % 11.8 % (18.0-39.1); MEAN CORPUSCULAR HEMOGLOBIN 30.4 pg (28-32); MEAN CORPUSCULAR HGB CONC 33.5 g/dL (31-35); MEAN CORPUSCULAR VOLUME 90.8 fL (81-99); MONOCYTES % 8.8 % (4.4-11.3); NEUTROPHILS # (AUTO) 17.1 (2.1-6.9); NEUTROPHILS % 76.3 % (38.7-80.0); PLATELET COUNT 173 x10e3/uL (140-360)
[2020-05-30 20:25] LABS: HEMATOCRIT 22.7 % (34.2-44.1)
[2020-05-30 20:57] LABS: INR 1.95; PROTHROMBIN TIME 23.8 seconds (11.9-14.5)
[2020-05-30] MEDS: TRAMADOL HCL 50 MG TAB PO PRN (23:01)
[2020-05-30] MEDS ORDERED: NOREPINEPHRINE INJ 4MG/4ML 8 MG in DEXTROSE 5% 250ML 250 ML IV PRN (23:30)
[2020-05-31] VITALS (8 sets, daily range): BP systolic 80–111; BP diastolic 40–77
[2020-05-31] MEDS ORDERED: NOREPINEPHRINE 8 MG/D5W 250 ML 250 ML ONE ×2 (00:02→10:17)
[2020-05-31] MEDS ORDERED: SODIUM CHLORIDE 0.9% 1000ML 1,000 ML IV ONE (00:30)
[2020-05-31] MEDS ORDERED: SODIUM CHLORIDE 0.9% 1000ML 1,000 ML ONE (00:39)
[2020-05-31] MEDS ORDERED: PHYTONADIONE 10 MG/ML AMP IV ONE ×2 (00:45→08:45)
[2020-05-31] MEDS ORDERED: SODIUM CHLORIDE 0.9% 100 ML ONE (01:29)
[2020-05-31 03:15] LABS: INR 1.74; PARTIAL THROMBOPLASTIN TIME 39.7 seconds (23.8-35.5); PROTHROMBIN TIME 21.6 seconds (11.9-14.5)
[2020-05-31] MEDS: TRAMADOL HCL 50 MG TAB PO PRN (03:30)
[2020-05-31] MEDS: ACETYLCYSTEINE IV SCH (04:00)
[2020-05-31] MEDS: SODIUM CHLORIDE 0.45% IV SCH (04:00)
[2020-05-31 04:09] LABS: EOSINOPHILS % 0.2 % (0.0-6.0); LYMPHOCYTES # (AUTO) 4.4 (1.0-3.2); LYMPHOCYTES % 19.3 % (18.0-39.1); MEAN CORPUSCULAR HEMOGLOBIN 31.9 pg (28-32); MONOCYTES # (AUTO) 1.8 (0.2-0.8); NEUTROPHILS # (AUTO) 15.4 (2.1-6.9); NEUTROPHILS % 67.4 % (38.7-80.0); RED BLOOD COUNT 0.91 x10e6/uL (3.6-5.1); RED CELL DISTRIBUTION WIDTH 16.8 % (11.7-14.4)
[2020-05-31 04:11] LABS: MEAN CORPUSCULAR VOLUME 96.7 fL (81-99)
[2020-05-31 04:12] LABS: HEMATOCRIT 8.8 % (34.2-44.1); HEMOGLOBIN 2.9 g/dL (12.0-16.0); PLATELET COUNT 91 x10e3/uL (140-360)
[2020-05-31] MEDS ORDERED: SODIUM CHLORIDE 0.9% 250ML 250 ML ONE ×2 (04:27→07:14)
[2020-05-31 04:41] LABS: ANION GAP 27.4 mmol/L (8-16); CALCIUM 7.2 mg/dL (8.4-10.2)
[2020-05-31 04:44] LABS: CREATININE, SERUM 1.52 mg/dL (0.57-1.11)
[2020-05-31 04:45] LABS: POTASSIUM 5.4 mmol/L (3.5-5.1)
[2020-05-31] MEDS ORDERED: SODIUM CHLORIDE 0.9% 500ML 500 ML ONE (08:07)
[2020-05-31] MEDS ORDERED: LACTATED RINGER'S 1,000 ML ONE (08:58)
[2020-05-31] MEDS ORDERED: SODIUM CHLORIDE 0.9% 250ML 250 ML IV ONE (09:00)
[2020-05-31] MEDS ORDERED: LACTATED RINGER'S 1,000 ML INJ SCH (09:00)
[2020-05-31] MEDS: RIFAXIMIN 550 MG TABLET PO SCH (09:00)
[2020-05-31] MEDS ORDERED: PHYTONADIONE 10MG/ML 20 MG in SODIUM CHLORIDE 0.9% 50ML 50 ML IV ONE (09:15)
[2020-05-31 09:44] LABS: BASOPHILS # (AUTO) 0.2 (0.0-0.1); BASOPHILS % 0.6 % (0.0-1.0); EOSINOPHILS % 0.1 % (0.0-6.0); HEMOGLOBIN 10.1 g/dL (12.0-16.0); LYMPHOCYTES # (AUTO) 3.8 (1.0-3.2); MEAN CORPUSCULAR HEMOGLOBIN 31.2 pg (28-32); MEAN CORPUSCULAR HGB CONC 32.6 g/dL (31-35); MEAN CORPUSCULAR VOLUME 95.7 fL (81-99); MONOCYTES # (AUTO) 2.8 (0.2-0.8); MONOCYTES % 8.9 % (4.4-11.3); NEUTROPHILS # (AUTO) 23.3 (2.1-6.9); NEUTROPHILS % 73.6 % (38.7-80.0); PLATELET COUNT 64 x10e3/uL (140-360); RED BLOOD COUNT 3.24 x10e6/uL (3.6-5.1); RED CELL DISTRIBUTION WIDTH 14.2 % (11.7-14.4)
[2020-05-31 10:17] LABS: PARTIAL THROMBOPLASTIN TIME 50.8 seconds (23.8-35.5)
[2020-05-31 10:23] LABS: INR 2.85; PROTHROMBIN TIME 32.3 seconds (11.9-14.5)
[2020-05-31 10:39] LABS: ALBUMIN 2.1 g/dL (3.5-5.0); ALBUMIN/GLOBULIN RATIO 1.6 (0.8-2.0); ANION GAP 33.4 mmol/L (8-16); CREATININE, SERUM 1.62 mg/dL (0.57-1.11)
[2020-05-31 10:40] LABS: POTASSIUM 6.4 mmol/L (3.5-5.1)
[2020-05-31 10:52] LABS: BAND NEUTROPHILS % (MANUAL) 3 %; EOSINOPHILS % (MANUAL) 1 % (0-7); LYMPHOCYTES % (MANUAL) 12 % (19-48); MONOCYTES % (MANUAL) 6 % (3.4-9.0); MYELOCYTES % (MANUAL) 6 % (0-0); NEUTROPHILS % (MANUAL) 72 % (40-74); PLATELET ESTIMATE MODERATELY DECREASED; PLATELET MORPHOLOGY COMMENT NORMAL; RBC MORPHOLOGY COMMENT NORMAL
[2020-05-31 10:53] LABS: BURR CELLS SLIGHT
[2020-05-31 13:32] LABS: RBC,BODY FLUID 1980000 cells/uL; WBC,BODY FLUID 6597 cells/uL
[2020-05-31 13:34] LABS: BODY FLUID TYPE PLEURAL
[2020-05-31 13:35] LABS: BODY FLUID APPEARANCE TURBID; BODY FLUID COLOR RED
[2020-05-31 14:27] LABS: EOSINOPHILS,BODY FLUID 1 %; LYMPHOCYTES,BODY FLUID 13 %; MONO/MACROPHG,BODY FLUID 8 %; NEUTROPHILS,BODY FLUID 79 %
== END 2020-05-31 10:30 | disposition short-term general hospital (02) | DRG 432 ==
LOC: ER 16:15 → ERHOLD 21:26 → ICU 21:30 → MED/SURG 05-25 23:02 → ICU 05-30 15:25
PROVIDERS: ADMIT Internal Medicine; ATTEND Internal Medicine
PROC: 02HV33Z Insertion of Infusion Device into Superior Vena Cava, Percutaneous Approach (ICD-10-PCS; principal; 2020-05-23)
PROC: 0BH17EZ Insertion of Endotracheal Airway into Trachea, Via Natural or Artificial Opening (ICD-10-PCS; 2020-05-30)
PROC: 5A1935Z Respiratory Ventilation, Less than 24 Consecutive Hours (ICD-10-PCS; 2020-05-30)
PROC: 0W9B30Z Drainage of Left Pleural Cavity with Drainage Device, Percutaneous Approach (ICD-10-PCS; 2020-05-30)
PROC: 30243K1 Transfusion of Nonautologous Frozen Plasma into Central Vein, Percutaneous Approach (ICD-10-PCS; 2020-05-30)
PROC: 30243N1 Transfusion of Nonautologous Red Blood Cells into Central Vein, Percutaneous Approach (ICD-10-PCS; 2020-05-30)
DX: K70.30 Alcoholic cirrhosis of liver without ascites (principal); K76.7 Hepatorenal syndrome; N17.0 Acute kidney failure with tubular necrosis; E87.1 Hypo-osmolality and hyponatremia; E87.2 Acidosis; N39.0 Urinary tract infection, site not specified; J94.2 Hemothorax; B17.9 Acute viral hepatitis, unspecified; D68.4 Acquired coagulation factor deficiency; K70.40 Alcoholic hepatic failure without coma; K71.10 Toxic liver disease with hepatic necrosis, without coma; E86.0 Dehydration; E86.1 Hypovolemia; E87.5 Hyperkalemia; T42.4X1A Poisoning by benzodiazepines, accidental (unintentional), initial encounter; F41.9 Anxiety disorder, unspecified; F32.9 Major depressive disorder, single episode, unspecified; K70.10 Alcoholic hepatitis without ascites; T39.1X5A Adverse effect of 4-Aminophenol derivatives, initial encounter; Z20.822 Contact with and (suspected) exposure to COVID-19; B96.1 Klebsiella pneumoniae [K. pneumoniae] as the cause of diseases classified elsewhere
CPT/HCPCS: 36415; 36600; 70450; 71045; 71046; 71260; 74018; 74174; 74176; 76705; 76999; 80048; 80053; 80307; 80329; 81001; 81015; 81050; 81161; 81220; 82140; 82550; 82570; 82575; 82607; 82728; 82746; 82805; 83010; 83540; 83615; 83690; 83735; 83880; 83930; 83935; 84100; 84156; 84300; 84466; 84484; 84702; 85007; 85025; 85027; 85045; 85379; 85384; 85610; 85651; 85730; 86140; 86677; 86850; 86900; 86920; 87086; 87186; 87340; 89051; 93005; 93306; 93970; 94002; 96361; 99284; J0330; J0610; J0692; J0696; J1170; J1756; J1885; J2001; J2250; J2270; J2354; J2405; J2550; J3430; J3480; J7030; J7040; J7050; J7121; J7799; P9016; P9017; P9047; Q0162; Q9967; U0002